=== PATIENT | female | born 1990 | race Caucasian/White ===

== ENCOUNTER → 2019-08-29 15:36 | Outpatient (CLI) | payer OTHER, SELFPAY ==
[2019-08-29 17:32] LABS: Absolute Lymphocyte Count 1.27 X10^3/uL (0.83-4.51); Absolute Neutrophil Count 6.9 X10^3/uL (2.0-7.7); Basophil# 0.03 X10^3/uL; Basophil% 0.3 % (0-1); Eosinophil# 0.06 X10^3/uL; Eosinophils% 0.7 % (0-5); Hematocrit 40.6 % (37-47); Hemoglobin 14.1 g/dL (12.0-15.0); Lymphocyte # 1.27 X10^3/ul (4.0); Lymphocyte % 14.5 % (19-41); Mean Corp Hgb Conc 34.7 g/dL (32-36); Mean Corpuscular Hgb 31.5 pg (27.0-32.0); Mean Corpuscular Volume 90.8 fL (81-99); Mean Platelet Vol. 9.8 fl (6.2-12.0); Monocyte# 0.51 X10^3/uL; Monocyte% 5.8 % (0-10); NRBC Flagged by Analyzer 0 % (0-5); Neutrophil # 6.85 X10^3/uL (2.7-7.7); Neutrophil % 78.2 % (47-70); Platelet Count 273 K/mm3 (150-450); RBC Distribution Width CV 11.9 % (11.6-14.6); RBC Distribution Width SD 39.2 fl (35.1-43.9); Red Blood Count 4.47 M/mm3 (4.2-5.4); White Blood Count 8.8 K/mm3 (4.4-11.0)
[2019-08-29 17:36] LABS: Color, Urine Yellow (Yellow); Glucose, Dipstick Normal (Normal); Ketone-Dipstick Negative (Negative); Leukocyte Esterase-Dipstick Negative /ul (Negative); Nitrite-Dipstick Negative (Negative); Occult Blood-Urine Negative /ul (Negative); Protein-Dipstick 15 mg/dl (Negative); Urine Bilirubin Dipstick Negative (Negative); Urine Clarity Clear (Clear); Urine Urobilinogen Normal (Normal)
[2019-08-29 17:46] LABS: COTININE Drug Screen Negative (<200 ng/mL)
[2019-08-29 17:47] LABS: Amphetamine Urine VISTA NEGATIVE (<1000 ng/mL); Barbiturate Urine VISTA NEGATIVE (< 200 ng/mL); Benzodiazepine Urine VISTA NEGATIVE (< 200 ng/mL); Cocaine Urine VISTA NEGATIVE (< 300 ng/mL); Ecstacy Urine VISTA NEGATIVE (< 500 ng/mL); Methadone Urine VISTA NEGATIVE (< 300 ng/mL); PCP Urine VISTA NEGATIVE (< 25 ng/mL); THC Urine VISTA NEGATIVE (< 50 ng/mL); Vista UDS pH Range 5
[2019-08-29 17:57] LABS: Thyroid Stim Hormone (TSH) 3.63 uIU/mL (0.358-3.74)
[2019-08-29 20:40] LABS: Chlamydia Trachomatis by PCR Negative (Negative); Neisserai gonorrhoeae by PCR Negative (Negative); Probe Check PASS; Sample Adequacy Control PASS; Specimen Processing Control PASS
[2019-08-30 09:39] LABS: HIV - WCH Non-Reactive (Nonreactive); Hepatitis B Surface Antigen Non-Reactive (Nonreactive); Hepatitis C Antibody Non-Reactive (Nonreactive); Rubella IgG 58.4 IU/mL
[2019-09-01 03:16] LABS: Prenatal RPR NONREACTIVE (NONREACTIVE)
== END ==
PROVIDERS: Visit Provider Advanced Practice Midwife
DX: Z34.81 Encounter for supervision of other normal pregnancy, first trimester (principal)
CPT/HCPCS: 36415; 80307; 81002; 84443; 85025; 86703; 86762; 86803; 87340; 87491; 87591

== ENCOUNTER → 2019-12-27 15:20 | Outpatient (CLI) | payer OTHER, SELFPAY ==
[2019-12-27 16:13] LABS: Hematocrit 35.1 % (37-47); Hemoglobin 12.1 g/dL (12.0-15.0); Mean Corp Hgb Conc 34.5 g/dL (32-36); Mean Corpuscular Hgb 31.3 pg (27.0-32.0); Mean Corpuscular Volume 90.7 fL (81-99); Mean Platelet Vol. 9.8 fl (6.2-12.0); Platelet Count 292 K/mm3 (150-450); RBC Distribution Width CV 11.6 % (11.6-14.6); RBC Distribution Width SD 38.1 fl (35.1-43.9); Red Blood Count 3.87 M/mm3 (4.2-5.4); White Blood Count 10.1 K/mm3 (4.4-11.0)
[2019-12-27 16:52] LABS: Glucose Challenge Gest 1H 50g 104 mg/dL (70-140)
== END ==
PROVIDERS: Visit Provider Obstetrics & Gynecology
DX: Z34.83 Encounter for supervision of other normal pregnancy, third trimester (principal)
CPT/HCPCS: 36415; 82950; 85027

== ENCOUNTER → 2020-02-16 | Outpatient (CLI) | payer OTHER, SELFPAY | END | disposition home or self-care (01) | PROVIDERS: PCP Family Medicine; Referring Provider Obstetrics & Gynecology; Visit Provider Obstetrics & Gynecology | DX: Z36.85 Encounter for antenatal screening for Streptococcus B (principal) | CPT/HCPCS: 87081 ==

== ENCOUNTER 2020-03-18 22:30 | Outpatient (CLI) | payer OTHER, SELFPAY ==
[2020-03-18 22:44] VITALS: BP 128/82; PULSE 85; TEMP 36.7
[2020-03-18 23:11] VITALS: BMI 28.0
--- NOTE | 2020-03-19 01:55 | OB.TRI.HP_ITS ---
- Problem List (1) 41 weeks gestation of Status: Acute (2) Labor, false (Rah-Tellez) Status: Acute History of Present Illness Date of Service: 03/18/20 Was patient seen by the physician?: No Reason For Visit: R/O LABOR Date of Service: 03/18/20 Final RUFINO: 03/11/20 Final RUFINO Source: US <20 weeks Gestational age: 41 Weeks and 1 Days Allergies No Known Allergies Allergy (Verified 03/18/20 23:09) Review of Systems Constitutional: Denies: Chills, Fever, Weight Change HEENT: Denies: Head Aches, Sinus Congestion, Sinus Drainage Cardiovascular: Denies: Chest Pain, Palpitations Respiratory: Denies: Cough, Shortness of breath at rest, Sputum production Gastrointestinal: Denies: Abdominal Pain, Nausea, Vomiting Genitourinary: Denies: Dysuria Musculoskeletal: Denies: Joint Pain, Joint Tenderness Skin: Denies: Rash, Wounds Neurological: Denies: Numbness, Tingling, Focal weakness Psychiatric: Denies: Anxiety, Depression, Homicidal Ideations, Suicidal Ideations Hematologic/ Lymphatic: Denies: Easy Bruising, Easy Bleeding Physical Exam Vitals: Vital Signs Temp Pulse BP 98.1 F 85 128/82 H 03/18/20 22:44 03/18/20 22:44 03/18/20 22:44 General: Alert, Oriented x3, No apparent distress HEENT: Atraumatic, Normocephalic. 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 Negative for: Vulvar lesions Estimated gestational size: Appropriate for gestational size Presentation: Cephalic Cervix Dilation (cm): 1.5 Station: -3 Effacement (%): 25 NST - FHR Rate Baby A Baseline: 130 Variability:: Moderate Accelerations:: 15 x 15 Decelerations:: None NST Reactive:: Yes FHR Category:: Category I Uterine Activity:: 3-5m Impression/Plan A/P: at 41 weeks gestation here to rule out labor Reports UC irregular since 0300, but getting closer together. At home 2-5m apart, but while on her drive here they spaced to 5-30m On arrival to unit SVE 1.5/-3 NST Category I UC Q3-5m Over two hours observed on NST, no cervical change noted with SVE remaining 1.5/-3 Option to stay given that she is postdates, but would like to discharge home and await active labor To keep appointment and NST in OB office today
== END 2020-03-19 01:00 | disposition home or self-care (01) ==
LOC: WPOUT 22:35 → WP 22:36
PROVIDERS: PCP Family Medicine; Referring Provider Obstetrics & Gynecology; Visit Provider Obstetrics & Gynecology
DX: O47.1 False labor at or after 37 completed weeks of gestation (principal); Z3A.41 41 weeks gestation of pregnancy
CPT/HCPCS: 59025; 59050; 99218; G0378

== ENCOUNTER 2020-03-19 06:08 | Inpatient (IN) | payer OTHER, SELFPAY ==
[2020-03-18 23:11] VITALS: BMI 28.0
[2020-03-19] VITALS (44 sets, daily range): BP systolic 101–155; BP diastolic 55–90; PULSE 72–146; TEMP 36.7–37.6; O2SAT 81–100; BMI 28.0
[2020-03-19] MEDS: Lactated Ringers 500 ML 999 ML IV ×2 (06:15→06:46)
[2020-03-19 06:22] LABS: Absolute Lymphocyte Count 1.12 X10^3/uL (0.83-4.51); Absolute Neutrophil Count 12.2 X10^3/uL (2.0-7.7); Basophil# 0.02 X10^3/uL; Basophil% 0.1 % (0-1); Hematocrit 38.4 % (37-47); Hemoglobin 13.5 g/dL (12.0-15.0); Lymphocyte # 1.12 X10^3/ul (4.0); Mean Corp Hgb Conc 35.2 g/dL (32-36); Mean Corpuscular Hgb 30.8 pg (27.0-32.0); Mean Corpuscular Volume 87.7 fL (81-99); Mean Platelet Vol. 9.9 fl (6.2-12.0); Monocyte% 4.3 % (0-10); NRBC Flagged by Analyzer 0 % (0-5); Neutrophil # 12.15 X10^3/uL (2.7-7.7); Neutrophil % 87.2 % (47-70); Platelet Count 323 K/mm3 (150-450); RBC Distribution Width CV 11.8 % (11.6-14.6); RBC Distribution Width SD 37.5 fl (35.1-43.9); Red Blood Count 4.38 M/mm3 (4.2-5.4); White Blood Count 13.9 K/mm3 (4.4-11.0)
--- NOTE | 2020-03-19 06:39 | HP.PCM_ITS ---
- Problem List (1) 41 weeks gestation of Status: Acute History Date of Admission: 03/19/20 Final RUFINO: 03/11/20 Final RUFINO Source: US <20 weeks Gestational age: 41 Weeks and 1 Days History of this : This is a 29 year-old, G [1], P [0], at 41 weeks gestational age. Allergies No Known Allergies Allergy (Verified 03/19/20 06:35) Home Medications: Home Medications NK 03/19/20 Alcohol: None Number of Fetus(es): 1 NST - FHR Rate Baby A Baseline: 150 Variability:: Moderate Accelerations:: 15 x 15 Decelerations:: None NST Reactive:: Yes FHR Category:: Category I Uterine Activity:: 4-5m History Past Pregnancies: Past Pregnancies: None Expected Infant Delivery Method: Spontaneous Vaginal Number of Visits: 12 Review of Systems Constitutional: Denies: Chills, Fever, Weight Change HEENT: Denies: Head Aches, Sinus Congestion, Sinus Drainage Cardiovascular: Denies: Chest Pain, Palpitations Respiratory: Denies: Cough, Shortness of breath at rest, Sputum production Gastrointestinal: Denies: Abdominal Pain, Nausea, Vomiting Genitourinary: Denies: Dysuria Musculoskeletal: Denies: Joint Pain, Joint Tenderness Skin: Denies: Rash, Wounds Neurological: Denies: Numbness, Tingling, Focal weakness Psychiatric: Denies: Anxiety, Depression, Homicidal Ideations, Suicidal Ideation s Hematologic/ Lymphatic: Denies: Easy Bruising, Easy Bleeding Physical Exam General: Alert, Oriented x3, No apparent distress HEENT: Atraumatic, Normocephalic. 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 Negative for: Vulvar lesions Estimated gestational size: Appropriate for gestational size Presentation: Cephalic Cervix Dilation (cm): 4 Station: -1 Effacement (%): 75 Assessment/Plan All Active Problems 41 weeks gestation of (Acute) Labor, false (Cobb-Tellez) (Acute) A/P: This is a 29 year-old, G [1], P [0], at 41 weeks gestational age. SVE /-1 NST Category I UC Q4-5m Active labor Wanting epidural for pain relief Expect
[2020-03-19] MEDS: Lactated Ringers 1,000 ML 50 ML IV ×2 (07:20→09:48)
--- NOTE | 2020-03-19 07:40 | NURSING ---
All charting under Javier Melton RN actually done by Corinna Rossi rn in error.
[2020-03-19] MEDS: fentaNYL-bupivacaine (epidural) 100 ML BAG EPIDURAL ×2 (07:47→12:39)
--- NOTE | 2020-03-19 08:48 | PCM.PN.OB ---
Subjective: Comfortable, not feeling any pain now. Still able to move legs, but can't feel them. Objective: VSS. SVE 4.5/90/-1. AROM with moderate meconium noted. FHR baseline 135, +accels, -decels, moderate variability. UC irregular 3-6m - Physical Exam Vitals/I&O's: Vital Signs Temp Pulse BP Pulse Ox 98.5 F 95 128/75 H 98 03/19/20 08:22 03/19/20 08:23 03/19/20 08:23 03/19/20 08:22 Weight: 86.183 kg Body Mass Index (BMI) 28.0 Intake and Output for Last 24 Hours 03/17/20 03/18/20 03/19/20 23:59 23:59 23:59 Intake Total 1000 / 1000 Balance 1000 / 1000 General: Alert, Oriented x3, Cooperative HEENT: Atraumatic, PERRLA, EOMI, Normocephalic Neck: Supple, No JVD, Negative Carotid Bruits Lungs: Clear to auscultation, Normal air movement Cardiovascular: Regular rate, No murmurs Abdomen: Bowel Sounds Present, Soft, Non Tender Extremities: No edema, Capillary Refill Less than 3 Seconds Skin: No rashes, No breakdown Musculoskeletal: No Tenderness to Palpation of Joints or Extremities Neurological: Cranial nerves II-XII grossly intact Psych/Mental Status: Normal Affect, Appropriate Laboratory Results 03/19/20 04:10: Blood Type B POSITIVE, Antibody Screen NEGATIVE 03/19/20 06:15: WBC 13.9 H, RBC 4.38, Hgb 13.5, Hct 38.4, MCV 87.7, MCH 30.8, MCHC 35.2, RDW Std Deviation 37.5, RDW Coeff of Roge 11.8, Plt Count 323, MPV 9.9, Immature Gran % (Auto) 0.400, Neut % (Auto) 87.2 H, Lymph % (Auto) 8.0 L, Terrell % (Auto) 4.3, Eos % (Auto) 0.0, Baso % (Auto) 0.1, Absolute Neuts (auto) 12.2 H, Absolute Lymphs (auto) 1.12, Nucleated RBC % 0 Current Medications Acetaminophen (Tylenol) 325 - 650 mg PO Q4H PRN PRN PRN Reason: Pain Score 1-3/10 Al Hydroxide/Mg Hydroxide (Mylanta Ii) 15 - 30 ml PO Q4H PRN PRN PRN Reason: INDIGESTION Citric Acid/Sodium Citrate (Bicitra) 30 ml PO X1 PRN PRN Reason: Section Ephedrine Sulfate () 10 mg IV Q10M PRN PRN Reason: hypotension Ephedrine Sulfate () 10 mg IM Q30M PRN PRN Reason: hypotension Fentanyl Citrate (Sublimaze (100mcg Ampule)) 25 - 50 mcg IV Q2H PRN PRN PRN Reason: Pain Score 4-10/10 Fentanyl/Bupivacaine/Sodium Chlor () 0 ml EPIDURAL UD BRIANNA; Protocol Lactated Ringer's () 500 mls @ 999 mls/hr IV .Q31M PRN PRN Reason: Epidural Last Infusion: 03/19/20 06:46 Dose: Infused Documented by: Lactated Ringer's () 500 mls @ 999 mls/hr IV .Q31M PRN PRN Reason: Corrective Measures Last Infusion: 03/19/20 07:20 Dose: Infused Documented by: Lactated Ringer's () 1,000 mls @ 50 mls/hr IV .Q20H BRIANNA Last Admin: 03/19/20 07:20 Dose: 50 mls/hr Documented by: Naloxone HCl 4 mg/ Dextrose 504 mls @ 0 mls/hr IV .Q0M PRN; Protocol PRN Reason: To maintain Resp. rate >10 Nalbuphine HCl (Nubain) 5 mg IV Q3H PRN PRN PRN Reason: ITCHING Naloxone HCl (Narcan) 0.02 mg IV Q1M PRN PRN Reason: RR< 10 AND PT UNRESPONSIVE Ondansetron HCl (Zofran) 4 mg IV Q4H PRN PRN PRN Reason: NAUSEA Prochlorperazine Edisylate (Compazine Iv) 10 mg IV Q6H PRN PRN PRN Reason: NAUSEA Sodium Chloride () 10 - 40 ml IV X1 PRN PRN Reason: SALINE FLUSH Medical Necessity - Tobacco Use Smoking Status: Never smoker Assessment/Plan All Active Problems 41 weeks gestation of (Acute) Labor, false (Rah-Tellez) (Acute) A/P: SVE 4.5/90/-1 AROM, moderate meconium Epidural in place with good pain management Expect
[2020-03-19] MEDS: Lactated Ringers 1,000 ML 200 ML IV (15:21)
[2020-03-19] MEDS: Oxytocin 30 units/NS 500 ml 30 UNITS/500 ML IV.SOLN 334 UNITS IV (18:50)
--- NOTE | 2020-03-19 19:34 | PCM.OPRPT ---
Problem List (1) 41 weeks gestation of Status: Acute Vaginal Delivery Maternal Presentation: Active Labor Amniotic Membrane Rupture Type: Artificial Amniotic Fluid Description: Moderate meconium Final RUFINO: 03/11/20 Final RUFINO Source: US <20 weeks Gestational age: 41 Weeks and 1 Days doctor who attended delivery (if requested by OB): Kristy Milian Date of Procedure: 03/19/20 Pre-Operative Diagnosis: Labor Post-Operative Diagnosis: S/P Surgery/ Procedure Performed: Spontaneous Vaginal Delivery Anesthesiologist: Murray Ch Type of Anesthesia: Epidural Description of Procedure: Patient was FD at +3 station with spontaneous urge to push. She pushed to deliver head in OA to SHALINI followed spontaneously by body. The female was placed on the maternal abdomen and further attended to by nursery personnel. The cord was doubly clamped and cut by FOB under CNM supervision at approximately 5 minutes of life. With gentle traction the placenta delivered. IV Pitocin started per protocol. On inspection placenta appears to have a three vessel cord. Third degree perineal/vaginal floor laceration repaired by attending Dr. Colbert under epidural anesthesia. Apgars 8/9. EBL 450. Sponge and needle counts correct x 2. Attending MD: Dr. Willam Colbert Presentation: Vertex, SHALINI Placental Delivery Description: Spontaneous Placenta Disposition: [facility] Cord Vessel Description: 3 Vessels Cord Entanglement: None Drain: Jarrell to straight drain Estimated Blood Loss: 450 A gender: Female (1 minute): 8 (5 minute): 9 Episiotomy Description: None Laceration: 3rd degree Medications given after delivery: IV Pitocin
--- NOTE | 2020-03-19 19:41 | DCINST_ITS ---
<WorleyJuanis suh - Last Filed: 03/19/20 19:41> Discharge Diet: No Restrictions Discharge Activity: Return to Normal Activity, May not drive while taking narcotic pain medications., May Shower May resume sexual activity in: 4-6 weeks Additional Activity Instructions:: Nothing in the vagina for 4-6 weeks. You may return to work/school in 6 weeks. Call your doctor if your incision/area has: Continuous Slow Oozing, Sudden Increased Bleeding, Increased Pain/ Swelling, Increased Redness, Foul Smelling Discharge Additional Instructions: If you experience any of the following, contact your healthcare provider. * Bleeding that soaks a pad every hour for 2 hours * Fever 100.4 or higher * Unrelieved incision or abdominal pain * Swelling, redness, discharge or bleeding from your incision or episiotomy site * Your incision begins to separate * Problems urinating (including inability to urinate or burning while urinating). * Visual changes * Severe headache * Flu-like symptoms * Pain or redness in one of both of your breasts * Pain, warmth, tenderness or swelling in your legs, especially the calf area * Frequent nausea and vomiting * Symptoms of depression or anxiety If you experience any of the following, call 911 or go to the nearest Emergency Room. * Chest pain * Problems breathing * Seizure activity * Partial or complete paralysis of a body part, slurred speech, weakness or drooping of the face, or a sudden inability to walk or hold your balance Allergies/Adverse Reactions: Allergies No Known Allergies Allergy (Verified 03/19/20 06:35) Medications to take at Discharge Docusate Sodium [Colace] 100 mg PO BID #60 cap 03/21/20 Oxycodone [Oxyir] 5 mg PO Q6H PRN PRN 7 Days #12 tablet 03/21/20 Polyethylene Glycol 3350 [Miralax] 119 gm PO DAILY 7 Days powder 03/21/20 The following prescriptions were given: Docusate Sodium [Colace] 100 mg PO BID #60 cap Transmission Status: Pending to [id number] Polyethylene Glycol 3350 [Miralax] 119 gm PO DAILY 7 Days powder Oxycodone [Oxyir] 5 mg PO Q6H PRN PRN 7 Days #12 tablet PRN Reason: Pain Score 6-/10 Transmission Status: Received by [id number] Please Follow Up With: Juanis Worley CNM When: Call to make an appointment with your CNM for a telehealth appt in 2 weeks as well as a 6 week PP appt. Primary Care Physician: Hussein Flynn MD [Primary Care Provider] - Test Results: Test results from this visit will be discussed in further detail at your follow- up appointment, if applicable. <Angel Colbert - Last Filed: 03/21/20 07:52> Additional Instructions: If you experience any of the following, contact your healthcare provider. * Bleeding that soaks a pad every hour for 2 hours * Fever 100.4 or higher * Unrelieved incision or abdominal pain * Swelling, redness, discharge or bleeding from your incision or episiotomy site * Your incision begins to separate * Problems urinating (including inability to urinate or burning while urinating). * Visual changes * Severe headache * Flu-like symptoms * Pain or redness in one of both of your breasts * Pain, warmth, tenderness or swelling in your legs, especially the calf area * Frequent nausea and vomiting * Symptoms of depression or anxiety If you experience any of the following, call 911 or go to the nearest Emergency Room. * Chest pain * Problems breathing * Seizure activity * Partial or complete paralysis of a body part, slurred speech, weakness or drooping of the face, or a sudden inability to walk or hold your balance Test Results: Test results from this visit will be discussed in further detail at your follow- up appointment, if applicable.
--- NOTE | 2020-03-19 19:43 | PN.OBGYN_ITS ---
Subjective: Comfortable with epidural in place. Objective: VSS, SVE 7.5/100/0. UC Q4-6m. FHR baseline 140, +accels, -decels, moderate variability. - Physical Exam Vitals/I&O's: Vital Signs Temp Pulse BP Pulse Ox 99.7 F H 109 H 129/72 H 99 03/19/20 17:39 03/19/20 19:31 03/19/20 19:31 03/19/20 19:19 Weight: 86.183 kg Body Mass Index (BMI) 28.0 Intake and Output for Last 24 Hours 03/17/20 03/18/20 03/19/20 23:59 23:59 23:59 Intake Total 3226.66 / 3226.66 Output Total 550 / 550 Balance 2676.66 / 2676.66 General: Alert, Oriented x3, Cooperative HEENT: Atraumatic, PERRLA, EOMI, Normocephalic Neck: Supple, No JVD, Negative Carotid Bruits Lungs: Clear to auscultation, Normal air movement Cardiovascular: Regular rate, No murmurs Abdomen: Bowel Sounds Present, Soft, Non Tender Extremities: No edema, Capillary Refill Less than 3 Seconds Skin: No rashes, No breakdown Musculoskeletal: No Tenderness to Palpation of Joints or Extremities Neurological: Cranial nerves II-XII grossly intact Psych/Mental Status: Normal Affect, Appropriate Laboratory Results 03/19/20 04:10: Blood Type B POSITIVE, Antibody Screen NEGATIVE 03/19/20 06:15: WBC 13.9 H, RBC 4.38, Hgb 13.5, Hct 38.4, MCV 87.7, MCH 30.8, MCHC 35.2, RDW Std Deviation 37.5, RDW Coeff of Roge 11.8, Plt Count 323, MPV 9.9, Immature Gran % (Auto) 0.400, Neut % (Auto) 87.2 H, Lymph % (Auto) 8.0 L, Shannon % (Auto) 4.3, Eos % (Auto) 0.0, Baso % (Auto) 0.1, Absolute Neuts (auto) 12.2 H, Absolute Lymphs (auto) 1.12, Nucleated RBC % 0 Current Medications Acetaminophen (Tylenol) 1,000 mg PO Q8H PRN PRN PRN Reason: Pain Score 1-3/10 Bisacodyl (Dulcolax) 10 mg RECTAL UD PRN PRN Reason: If no BM Dibucaine (Dibucaine) 1 applic TOPICAL TID PRN PRN; Protocol PRN Reason: Discomfort Hydrocortisone (Hytone) 1 applic TOPICAL TID PRN PRN; Protocol PRN Reason: Discomfort Oxytocin/Sodium Chloride () 30 units in 500 mls @ 334 mls/hr IV .Q1H30M [facility] Stop: 03/19/20 20:05 Ibuprofen (Motrin) 600 mg PO Q6H PRN PRN PRN Reason: Pain Score 1-3/10 Methylergonovine Maleate (Methergine) 0.2 mg IM X1 PRN PRN Reason: Excess bleeding/uterine atony Ondansetron HCl (Zofran) 4 mg IV Q4H PRN PRN PRN Reason: Nausea Oxycodone HCl (Oxyir) 5 - 10 mg PO Q4H PRN PRN PRN Reason: Pain Score 4-10/10 Senna/Docusate Sodium (Senokot-S, Kemi-Colace) 1 - 2 tablet PO DAILY PRN PRN PRN Reason: Constipation Simethicone (Mylicon) 80 mg PO PCHS PRN PRN Reason: Indigestion/Stomach pain Sodium Chloride () 5 - 15 ml IV UD PRN PRN Reason: SALINE FLUSH Throat Lozenges (Dermoplast (Sp)) 1 applic TOPICAL 4X/DAY PRN PRN; Protocol PRN Reason: Pain/Inflammation Medical Necessity - Tobacco Use Smoking Status: Never smoker Assessment/Plan All Active Problems 41 weeks gestation of (Acute) Labor, false (Rah-Tellez) (Acute) A/P: SVE 7.5/100/0 NST Category I UC Q4-6m Active labor Epidural in place, adequate pain management
[2020-03-19] MEDS: 0.9% Saline Lock 10 ML Syringe IV (21:30)
[2020-03-20] VITALS: BP 109/64; PULSE 103; RESP 17; TEMP 37.4
[2020-03-20] MEDS: Ibuprofen 600 MG Tablet PO ×3 (00:15→13:11)
--- NOTE | 2020-03-20 01:43 | OP.PCM_ITS ---
Report of Operation Date of Procedure: 03/19/20 Pre-Operative Diagnosis: Sharpe intrauterine at 41/4w. Third degree perineal laceration Post-Operative Diagnosis: Sharpe intrauterine at 41/4w. Third degree perineal laceration Surgery/Procedure Performed:: Third degree perineal laceration repair Description of Surgical Findings:: Third degree perineal laceration Type of Anesthesia:: Epidural Anesthesiologist: Murray Ch Estimated Blood Loss (mL): 450cc Description of Procedure: Patient comfortable with epidural. Thorough exam completed. Interrupted stitches used for end to end reapproximation of external anal sphincter muscles which had been identified and grasped with Allis clamps. Vaginal mucosa and submucosa then reapproximated starting at the vaginal apex. [place] stitches placed at the perineal muscles. Vaginal epithelium then reapproximated with subcuticular stich. Rectal exam demonstrated intact internal anal sphincter and rectal mucosa. Sponge and needle counts correct x2 at the end of the procedure.
[2020-03-20 03:10] VITALS: BP 111/73; PULSE 72; RESP 17; TEMP 36.3
--- NOTE | 2020-03-20 07:06 | PCM.PN.OB ---
Subjective: Feeling well today, a little sore, but denies actual pain. Denies heavy bleeding. Has been ambulating in her room, tolerating a regular diet, passing flatus and urinating without difficulty. Objective: VSS. Fundus is firm, midline, u/1. Lochia rubra moderate. - Physical Exam Vitals/I&O's: Vital Signs Temp Pulse Resp BP Pulse Ox 97.3 F L 72 17 111/73 98 03/20/20 03:10 03/20/20 03:10 03/20/20 03:10 03/20/20 03:10 03/19/20 20:35 Oxygen Delivery Method Room Air Weight: 86.183 kg Body Mass Index (BMI) 28.0 Intake and Output for Last 24 Hours 03/18/20 03/19/20 03/20/20 23:59 23:59 23:59 Intake Total 3726.66 / 3726.66 Output Total 550 / 550 900 / 900 Balance 3176.66 / 3176.66 -900 / -900 General: Alert, Oriented x3, Cooperative HEENT: Atraumatic, PERRLA, EOMI, Normocephalic Neck: Supple, No JVD, Negative Carotid Bruits Lungs: Clear to auscultation, Normal air movement Cardiovascular: Regular rate, No murmurs Abdomen: Bowel Sounds Present, Soft, Non Tender Extremities: No edema, Capillary Refill Less than 3 Seconds Skin: No rashes, No breakdown Musculoskeletal: No Tenderness to Palpation of Joints or Extremities Neurological: Cranial nerves II-XII grossly intact Psych/Mental Status: Normal Affect, Appropriate Laboratory Results 03/19/20 04:10: Blood Type B POSITIVE, Antibody Screen NEGATIVE Current Medications Acetaminophen (Tylenol) 1,000 mg PO Q8H PRN PRN PRN Reason: Pain Score 1-3/10 Bisacodyl (Dulcolax) 10 mg RECTAL UD PRN PRN Reason: If no BM Dibucaine (Dibucaine) 1 applic TOPICAL TID PRN PRN; Protocol PRN Reason: Discomfort Hydrocortisone (Hytone) 1 applic TOPICAL TID PRN PRN; Protocol PRN Reason: Discomfort Ibuprofen (Motrin) 600 mg PO Q6H PRN PRN PRN Reason: Pain Score 1-3/10 Last Admin: 03/20/20 06:04 Dose: 600 mg Documented by: Methylergonovine Maleate (Methergine) 0.2 mg IM X1 PRN PRN Reason: Excess bleeding/uterine atony Ondansetron HCl (Zofran) 4 mg IV Q4H PRN PRN PRN Reason: Nausea Oxycodone HCl (Oxyir) 5 - 10 mg PO Q4H PRN PRN PRN Reason: Pain Score 4-10/10 Senna/Docusate Sodium (Senokot-S, Kemi-Colace) 1 - 2 tablet PO DAILY PRN PRN PRN Reason: Constipation Simethicone (Mylicon) 80 mg PO PCHS PRN PRN Reason: Indigestion/Stomach pain Sodium Chloride () 5 - 15 ml IV UD PRN PRN Reason: SALINE FLUSH Last Admin: 03/19/20 21:30 Dose: 10 ml Documented by: Throat Lozenges (Dermoplast (Sp)) 1 applic TOPICAL 4X/DAY PRN PRN; Protocol PRN Reason: Pain/Inflammation Medical Necessity - Tobacco Use Smoking Status: Never smoker Assessment/Plan All Active Problems 41 weeks gestation of (Acute) Labor, false (Rah-Tellez) (Acute) A/P: S/P day #1 Normal involution and course Bottle feeding female Dyad stable Expect discharge tomorrow
[2020-03-20 08:27] VITALS: BP 101/66; PULSE 83; RESP 16; TEMP 36.8
[2020-03-20] MEDS: Acetaminophen 500 MG Tablet 1000 MG PO ×2 (10:59→20:37)
[2020-03-20 12:50] VITALS: BP 114/70; PULSE 108; RESP 16; TEMP 36.9
[2020-03-20 16:37] VITALS: BP 118/70; PULSE 87; RESP 16; TEMP 36.3
[2020-03-20 20:30] VITALS: BP 118/73; PULSE 73; RESP 18; TEMP 37.1
[2020-03-21 01:00] VITALS: BP 99/58; PULSE 69; RESP 17; TEMP 37.1
--- NOTE | 2020-03-21 07:49 | PCM.PN.OB ---
Subjective: Objective: No overnight complaints, pain well controlled. Denies CP, SOB, N/V - Physical Exam Vitals/I&O's: Vital Signs Temp Pulse Resp BP Pulse Ox 98.7 F 69 17 99/58 L 98 03/21/20 01:00 03/21/20 01:00 03/21/20 01:00 03/21/20 01:00 03/19/20 20:35 Oxygen Delivery Method Room Air Weight: 190 lb Body Mass Index (BMI) 28.0 Intake and Output for Last 24 Hours 03/19/20 03/20/20 03/21/20 23:59 23:59 23:59 Intake Total 3726.66 / 3726.66 Output Total 550 / 550 900 / 900 Balance 3176.66 / 3176.66 -900 / -900 General: Alert, Oriented x3, Well developed, Well nourished HEENT: Atraumatic, PERRLA, Normocephalic Oral: Moist Mucosa Neck: Supple Abdomen: Bowel Sounds Present, Soft, Non Tender, Non-Distended, Gravid Extremities: No edema Skin: No rashes Psych/Mental Status: Normal Affect, Appropriate Current Medications Acetaminophen (Tylenol) 1,000 mg PO Q8H PRN PRN PRN Reason: Pain Score 1-3/10 Last Admin: 03/20/20 20:37 Dose: 1,000 mg Documented by: Bisacodyl (Dulcolax) 10 mg RECTAL UD PRN PRN Reason: If no BM Dibucaine (Dibucaine) 1 applic TOPICAL TID PRN PRN; Protocol PRN Reason: Discomfort Hydrocortisone (Hytone) 1 applic TOPICAL TID PRN PRN; Protocol PRN Reason: Discomfort Ibuprofen (Motrin) 600 mg PO Q6H PRN PRN PRN Reason: Pain Score 1-3/10 Last Admin: 03/20/20 13:11 Dose: 600 mg Documented by: Methylergonovine Maleate (Methergine) 0.2 mg IM X1 PRN PRN Reason: Excess bleeding/uterine atony Ondansetron HCl (Zofran) 4 mg IV Q4H PRN PRN PRN Reason: Nausea Oxycodone HCl (Oxyir) 5 - 10 mg PO Q4H PRN PRN PRN Reason: Pain Score 4-10/10 Senna/Docusate Sodium (Senokot-S, Kemi-Colace) 1 - 2 tablet PO DAILY PRN PRN PRN Reason: Constipation Simethicone (Mylicon) 80 mg PO PCHS PRN PRN Reason: Indigestion/Stomach pain Throat Lozenges (Dermoplast (Sp)) 1 applic TOPICAL 4X/DAY PRN PRN; Protocol PRN Reason: Pain/Inflammation Medical Necessity - Tobacco Use Smoking Status: Never smoker Assessment/Plan All Active Problems 41 weeks gestation of (Acute) Labor, false (Rah-Tellez) (Acute) PPD#1 s/p complicated by 3rd degree laceration. Pain well controlled. Okay to d/c home today
[2020-03-21] MEDS: Ibuprofen 600 MG Tablet PO (07:54)
[2020-03-21 08:00] VITALS: BP 117/70; PULSE 87; RESP 16; TEMP 36.7
[2020-03-21] MEDS: Acetaminophen 500 MG Tablet 1000 MG PO (10:13)
== END 2020-03-21 10:30 | disposition home or self-care (01) | DRG 768 ==
LOC: WPOUT 06:11 → WP 09:01
PROVIDERS: Admitting Provider Obstetrics & Gynecology; PCP Family Medicine; Referring Provider Obstetrics & Gynecology; Visit Provider Obstetrics & Gynecology
DX: O48.0 Post-term pregnancy (principal); Z37.0 Single live birth; O77.0 Labor and delivery complicated by meconium in amniotic fluid; O70.20 Third degree perineal laceration during delivery, unspecified; Z3A.41 41 weeks gestation of pregnancy
CPT/HCPCS: 59050; 85025; 86850; 86900; 86901; 99218; J7120; A4216; G0378

== ENCOUNTER → 2021-11-28 | Outpatient (CLI) | payer SELFPAY ==
[2021-11-28 15:22] LABS: Absolute Lymphocyte Count 1.39 X10^3/uL (0.83-4.51); Absolute Neutrophil Count 5.7 X10^3/uL (2.0-7.7); Basophil# 0.04 X10^3/uL; Basophil% 0.5 % (0-1); Eosinophil# 0.08 X10^3/uL; Hemoglobin 11.9 g/dL (12.0-15.0); Lymphocyte # 1.39 X10^3/ul (0.83-4.51); Lymphocyte % 17.7 % (19-41); Mean Corpuscular Hgb 29.4 pg (27.0-32.0); Mean Corpuscular Volume 86.4 fL (81-99); Monocyte# 0.58 X10^3/uL; Monocyte% 7.4 % (0-10); NRBC Flagged by Analyzer 0 % (0-5); Neutrophil # 5.74 X10^3/uL (2.7-7.7); Neutrophil % 73.1 % (47-70); Platelet Count 304 K/mm3 (150-450); RBC Distribution Width CV 13.1 % (11.6-14.6); RBC Distribution Width SD 41.1 fl (35.1-43.9); Red Blood Count 4.05 M/mm3 (4.2-5.4); White Blood Count 7.9 K/mm3 (4.4-11.0)
[2021-11-29 09:20] LABS: HIV - WCH Non-Reactive (Nonreactive); Hepatitis B Surface Antigen Non-Reactive (Nonreactive); Hepatitis C Antibody Non-Reactive (Nonreactive); Rubella IgG Reactive (Nonreactive); Syphilis Antibodies Non-reactive
[2021-12-02 11:08] LABS: Chlamydia By Nucleic Acid AMP Negative (Negative)
[2021-12-02 11:44] LABS: Gonococcus By Nucleic Acid AMP Negative (Negative)
[2021-12-05 15:28] LABS: HPV APTIMA, High Risk Negative (Negative)
== END | disposition home or self-care (01) ==
LOC: WOBLAB 14:05
PROVIDERS: PCP Family Medicine; Visit Provider Obstetrics & Gynecology
DX: Z34.81 Encounter for supervision of other normal pregnancy, first trimester (principal)
CPT/HCPCS: 36415; 85025; 86703; 86762; 86780; 86803; 87086; 87088; 87340; 87491; 87591; 87624; 88175; G0145

== ENCOUNTER → 2022-03-25 | Outpatient (CLI) | payer SELFPAY ==
[2022-03-25 17:33] LABS: Absolute Lymphocyte Count 1.65 X10^3/uL (0.83-4.51); Absolute Neutrophil Count 6.1 X10^3/uL (2.0-7.7); Basophil# 0.04 X10^3/uL; Basophil% 0.5 % (0-1); Eosinophils% 1.2 % (0-5); Hematocrit 32.8 % (37-47); Hemoglobin 10.8 g/dL (12.0-15.0); Lymphocyte # 1.65 X10^3/ul (0.83-4.51); Mean Corp Hgb Conc 32.9 g/dL (32-36); Mean Corpuscular Volume 88.2 fL (81-99); Mean Platelet Vol. 9.7 fl (6.2-12.0); Monocyte# 0.77 X10^3/uL; Monocyte% 8.9 % (0-10); NRBC Flagged by Analyzer 0 % (0-5); Neutrophil # 6.09 X10^3/uL (2.7-7.7); Neutrophil % 70.1 % (47-70); Platelet Count 295 K/mm3 (150-450); RBC Distribution Width CV 12.9 % (11.6-14.6); RBC Distribution Width SD 40.8 fl (35.1-43.9); Red Blood Count 3.72 M/mm3 (4.2-5.4); White Blood Count 8.7 K/mm3 (4.4-11.0)
[2022-03-25 17:40] LABS: Glucose Challenge Gest 1H 50g 80 mg/dL (70-140)
== END | disposition home or self-care (01) ==
LOC: WOBLAB 16:28
PROVIDERS: PCP Family Medicine; Visit Provider Obstetrics & Gynecology
DX: Z34.83 Encounter for supervision of other normal pregnancy, third trimester (principal)
CPT/HCPCS: 36415; 82950; 85025

== ENCOUNTER → 2022-06-02 | Outpatient (CLI) | payer SELFPAY | END | disposition home or self-care (01) | PROVIDERS: PCP Family Medicine; Visit Provider Obstetrics & Gynecology | DX: Z36.85 Encounter for antenatal screening for Streptococcus B (principal) | CPT/HCPCS: 87081 ==

== ENCOUNTER 2022-07-04 02:04 | Inpatient (IN) | payer SELFPAY ==
[2022-07-04] VITALS (74 sets, daily range): BP systolic 97–159; BP diastolic 56–118; PULSE 76–114; RESP 14–16; TEMP 36.1–37.7; O2SAT 94–100; BMI 27.9
[2022-07-04] MEDS: Lactated Ringers 1,000 ML 200 ML IV (02:10)
[2022-07-04 02:36] LABS: Absolute Lymphocyte Count 1.63 X10^3/uL (0.83-4.51); Absolute Neutrophil Count 10.3 X10^3/uL (2.0-7.7); Basophil# 0.03 X10^3/uL; Basophil% 0.2 % (0-1); Eosinophil# 0.04 X10^3/uL; Eosinophils% 0.3 % (0-5); Hematocrit 35.2 % (37-47); Hemoglobin 11.3 g/dL (12.0-15.0); Lymphocyte # 1.63 X10^3/ul (0.83-4.51); Lymphocyte % 12.7 % (19-41); Mean Corp Hgb Conc 32.1 g/dL (32-36); Mean Corpuscular Hgb 26.8 pg (27.0-32.0); Mean Corpuscular Volume 83.4 fL (81-99); Mean Platelet Vol. 9.7 fl (6.2-12.0); Monocyte# 0.79 X10^3/uL; Monocyte% 6.1 % (0-10); NRBC Flagged by Analyzer 0 % (0-5); Neutrophil # 10.29 X10^3/uL (2.7-7.7); Neutrophil % 80.1 % (47-70); Platelet Count 341 K/mm3 (150-450); RBC Distribution Width CV 13.3 % (11.6-14.6); RBC Distribution Width SD 39.9 fl (35.1-43.9); Red Blood Count 4.22 M/mm3 (4.2-5.4); White Blood Count 12.9 K/mm3 (4.4-11.0)
[2022-07-04] MEDS: fentaNYL-bupivacaine (epidural) 100 ML BAG EPIDURAL (03:15)
[2022-07-04] MEDS: Oxytocin 10 UNITS/ML Vial IM (05:52)
[2022-07-04] MEDS: Methylergonovine 0.2 MG/ML Ampul IM (05:54)
--- NOTE | 2022-07-04 06:18 | PCM.HP.BLA ---
History and Physical Date of Admission: 07/04/22 Chief complaint: Contractions History present illness: 31-year-old G2, P1 at 40 weeks and 5 days with RUFINO 06/29/2022 arrives with contractions. Denies headache, vision change, chest pain, shortness of breath, nausea vomit, right upper quadrant pain. Patient states good movement. Obstetrical history: G1: 41-week 7 pounds 12 ounces complicated by third-degree laceration G2: Current Medications: None Past medical history: None Past surgical history: None Allergies: No known drug allergies Social history: Denies smoking, alcohol use, drug use Family history: Denies history DVT or PE Review of systems: Besides above pertinent positives a full review of systems was performed and found to be negative Physical exam: Vitals: Pulse 82 SPO2 98% on room air General: Normal-appearing no acute distress HEENT: Normocephalic/atraumatic no cervical lymphadenopathy Cardiac/respiratory: No use accessory muscles, nonlabored breathing Abdomen: Soft, nontender, gravid Pelvic exam: Cervical exam 10/100/+1, AROM thin meconium Extremities: No peripheral edema normal peripheral pulses Psych: Normal affect, demeanor nonpressured speech Labs: White blood cell count 12.9 hemoglobin 11.3 hematocrit 35.2% platelets 341 blood type B+ antibody negative Assessment plan: 31-year-old G2, P1 at 40 weeks and 5 days in labor. AROM thin meconium, educated patient on meconium and meconium aspiration risk. 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 Admit labor and delivery CEFM GBS negative Routine orders Anesthesia see
--- NOTE | 2022-07-04 06:20 | EX.PCM.OBRPT ---
Vaginal Delivery Findings Description of Procedure: Normal spontaneous vaginal delivery of a viable female infant, vertex AGAPITO. Head and shoulders delivered with ease. Cord clamped and cut. Baby handed off to patient. Placenta delivered via cord traction and fundal massage. IM Pitocin given. First-degree midline perineal laceration and left labial laceration noted and repaired in typical fashion. EBL 250 cc Apgars 8/9. Methergine IM given prophylactically with short second stage
[2022-07-04] MEDS: Ibuprofen 600 MG Tablet PO (19:24)
[2022-07-05] VITALS (8 sets, daily range): BP systolic 103–120; BP diastolic 65–70; PULSE 82–91; RESP 14–16; TEMP 36.4–36.8; O2SAT 98
--- NOTE | 2022-07-05 07:13 | DCINST_ITS ---
Discharge Instructions Diet Discharge Diet: No restrictions Activity Discharge Activity: Return to Normal Activity, May Drive, May Shower and May Take a Tub Bath (in 4 weeks) May resume sexual activity in: 6-8 weeks (after seen by OB provider) Weight Bearing Status: Full weight bearing Lifting Restrictions: none Dressing / Incision Call your doctor if you observe: Fever of 101 or Higher, Inability to urinate, Using more than 1 pad per hour (for more than 2 hours in a row or more), Shortness of breath, Dizziness, Chest pain and - (headache not controlled with tylenol, change in vision) Follow Up Care When: in 6 weeks for visit, call the office to make the appointment. If you had elevated blood pressures call the office to be seen within 1 week. Test Results: Test results from this visit will be discussed in further detail at your follow- up appointment, if applicable. Discharge Plan Admission Admit Date/Time: 07/04/22 02:04 Attending Provider: Jazmine Ortiz Primary Care Provider: Hussein Flynn Discharge Orders/Prescriptions Referrals / Follow Up: Hussein Flynn MD [Primary Care Provider] - Disposition Disposition (needs filled in before D/C Order can be placed): Home, Self Care
--- NOTE | 2022-07-05 07:13 | PCM.PN.OB ---
Subjective Subjective Patient doing well without complaints. Tolerating PO. Ambulating and voiding without difficulty. feeding well. Denies chest pain, shortness of breath, calf pain/swelling, fevers, chills, lightheadedness. Objective Data Objective Data Vital Signs: Vital Signs Temp Pulse Resp BP Pulse Ox O2 Del Method 98.2 F 83 16 118/70 98 Room Air 07/05/22 04:12 07/05/22 04:12 07/05/22 04:12 07/05/22 04:12 07/05/22 00:18 07/05/22 00:18 Oxygen Delivery Method Room Air Weight: 189 lb 3.2 oz Body Mass Index (BMI) 27.9 Intake & Output: Intake and Output for Last 24 Hours 07/03/22 07/04/22 07/05/22 23:59 23:59 23:59 Intake Total 803.33 / 803.33 Output Total 850 / 850 Balance -46.67 / -46.67 Lab / Micro Data Result Diagrams: 07/04/22 02:28 ROS Constitutional Constitutional: Reports systems reviewed and no addt'l complaints, except as documented Cardiovascular Cardiovascular: Reports systems reviewed and no addt'l complaints, except as documented Respiratory/Chest Respiratory/Chest: Reports systems reviewed and no addt'l complaints, except as documented Gastrointestinal Gastrointestinal: Reports systems reviewed and no addt'l complaints, except as documented Physical Exam Const alert, oriented x3 and no apparent distress HEENT Head and Scalp: atraumatic Resp normal respiratory effort GI soft to palpation and non-tender Bimanual Exam - Vag & Uterus: uterus non-tender Uterus Palpation: uterus fundus firm (below Umbilicus) Assessment & Plan (1) Vaginal delivery: PLAN: Plan s/p PPD # 1 1. routine post delivery care 2. breast feeding- support given 3. rh positive 4. rubella immune
--- NOTE | 2022-07-05 16:39 | NURSING ---
Reviewed and agreed with John SILVA charting.
== END 2022-07-05 14:25 | disposition home or self-care (01) | DRG 807 ==
LOC: WPOUT 02:07 → WP 02:07
PROVIDERS: Admitting Provider Obstetrics & Gynecology; PCP Family Medicine; Visit Provider Obstetrics & Gynecology
DX: O70.0 First degree perineal laceration during delivery (principal); Z37.0 Single live birth; Z3A.40 40 weeks gestation of pregnancy
CPT/HCPCS: 59025; 59050; 85025; 86850; 86900; 86901; 99218; J7120; G0378